=== PATIENT | male | born 1990 | race Caucasian/White ===

== ENCOUNTER 2016-07-28 21:54 | Emergency (ER) | payer OTHER ==
--- NOTE | 2016-07-28 22:53 | ED ORDER SUMMARY ---
..... Patient: YECENIA HORTON OrderSheet [facility] VisitID: [id number] [address] [place] [address] 26y, M Registration Date/Time: 07/28/2016 ORDER SHEET Weight: 108.8 kg (stated) Allergies: Sulfa Antibiotics GENERAL ORDERS: MEDICATION ORDERS: Tdap IM 0.5 mL (NOW, per protocol) (22:36 07/28/2016 Nallely R.N. per protocol) ([facility] 22:36 RCollier R.N.) (22:51 SANAollmaxime R.N.) IV FLUIDS: ORDER SHEET NOTES: [Electronically signed by Harleen Martinez R.N. (23:26 07/28/2016)] [Electronically signed by Danita Sutton (23:29 07/28/2016)] [Electronically locked/signed by Harleen Martinez R.N. (23:07/28/2016)]
--- NOTE | 2016-07-28 22:53 | ED NURSING NOTES ---
Clinical Report - Nurses [facility] [address] [place] [address] 07/28/2016 21:54 Patient: YECENIA HORTON TRIAGE Triage time 22:27. Acuity: LEVEL 4. Chief Complaint: INJURY TO LEFT WRIST. --22:33 Harleen Martinez R.N. 22:27 07/28/16. BP: 132/69. HR: 86. RR: 15. O2 saturation: 99%. Temp: 98.2 F (oral). Pain level now: 09/03. --22:33 Harleen Martinez R.N. Weight: 108.8 kg stated. Height/Length: 72 inches Per Patient. BMI: 32.6. --22:32 Harleen Martinez R.N. Medications Albuterol Sulfate Inhalation. --22:29 Harleen Martinez R.N. Qvar Inhalation. --22:29 Harleen Martinez R.N. Allergies Sulfa Antibiotics. --22:29 Harleen Martinez R.N. History Arrived by private vehicle. Historian: patient. Primary physician (Laura). ( pt cut self with knife while cutting velcro). This occurred today. He sustained a laceration. Treatment MANAGER SOCIAL MEDIA: None. PAST MEDICAL HX: Tetanus immunization status is not up-to-date. SOCIAL HX: Smoker- current status unknown (quit 6 months ago). History of drug use: marijuana. No alcohol use. --22:33 Harleen Martinez R.N. PROBLEMS: Gastroesophageal Reflux Disease. Lifestyle / Substance Problems. Dyspnea. Crohn's Disease. Headache. Diarrhea. Asthma. --22:30 Harleen Martinez R.N. ADDITIONAL SURGERIES: Arm surgery. Colonoscopy. Fracture Repair. Left arm closed reduction. --22:30 Harleen Martinez R.N. Interventions ID band on patient. To treatment room. --22:33 Harleen Martinez R.N. PHYSICAL ASSESSMENT Ambulatory to room. GENERAL / NEURO / PSYCH: Oriented X 4. Alert. Appears in no acute distress. EXTREMITIES: Capillary refill is less than 2 seconds in the extremities. Neuro-vascular status intact to the extremity. Left forearm: laceration with bleeding. SKIN: Skin is warm and dry. --22:33 Harleen Martinez R.N. NURSING PROGRESS NOTES Two patient identifiers checked. Call light placed in reach. Side rails up x 1. Bed placed in lowest position. Brakes of bed on. --22:34 Harleen Martinez R.N. Patient ready for evaluation- chart flagged. --22:34 Harleen Martinez R.N. 22:51 07/28/2016 TDAP IM 0.5 mL given. (Lot#: [id number], expiration date: 04/21/2018, Kiln Mechanic: sanofi pasteur). Given in the right deltoid. Allergies verified and confirmed 5 rights. Vaccine information statement provided to the patient. --22:51 Harleen Martinez R.N. 22:55. Applied clean dressing consisting of Band-Aid, following the application of antibiotic ointment. --23:25 Harleen Martinez R.N. DISPOSITION / DISCHARGE 23:00. Condition at departure: improved and stable. No learning barriers present. Discharge instructions provided and reviewed with the patient. Patient verbalized understanding. Written instructions provided in Mosotho. The patient was discharged home and accompanied by billing checker. He left the Emergency Department ambulatory and via private vehicle. Patient driving. --23:24 Harleen Martinez R.N. 23:00 07/28/16. BP: deferred. HR: deferred. RR: 15 (regular and unlabored). O2 saturation: deferred. Temp: deferred. Pain level now: 0/10. --23:24 Harleen Martinez R.N. Locked/Released at 07/28/2016 23:26 by Harleen Martinez R.N.
--- NOTE | 2016-07-28 22:53 | ED CLINICAL REPORT ---
Clinical Report - Physicians/Mid Levels [place] [address] [place] [address] 07/28/2016 21:54 Patient: YECENIA HORTON Time Seen: 22:27; initial patient contact, initial documentation, patient care assumed. Arrived- By private vehicle. Historian- patient. HISTORY OF PRESENT ILLNESS Chief Complaint: Injury to left forearm. The injury happened just prior to arrival. The patient sustained a laceration from a knife. Occurred at home. Patient is not experiencing pain. Patient denies injury to the head or neck. No other injury. REVIEW OF SYSTEMS The patient sustained a laceration. No swelling, tingling, numbness or weakness. All systems otherwise negative, except as recorded above. PAST HISTORY See nurses notes. PROBLEMS: Gastroesophageal Reflux Disease. Lifestyle / Substance Problems. Dyspnea. Crohn's Disease. Headache. Diarrhea. Asthma. --22:30 Harleen Martinez R.N. ADDITIONAL SURGERIES: Arm surgery. Colonoscopy. Fracture Repair. Left arm closed reduction. --22:30 Harleen Martinez R.N. The patient's dominant hand is the right. Tetanus immunization status is unknown. SOCIAL HISTORY Former smoker. Occasional alcohol use. History of occasional drug use: marijuana. No recent travel. Is a local resident. FAMILY HISTORY No significant family medical history. ADDITIONAL NOTES The nursing notes have been reviewed with agreement regarding the chief complaint, HPI, ROS, PMH and patient medications and allergies. PHYSICAL EXAM Vital Signs: 07/28/2016 22:27 BP: 132/69. HR: 86. RR: 15. O2 saturation: 99%. Temp: 98.2 F. Pain level now: 2/10. Have been reviewed as normal and appear to be correct. Appearance: Alert. Oriented X3. No acute distress. Head: Head atraumatic. Eyes: Pupils equal, round and reactive to light. Eyes normal inspection. Respiratory: No respiratory distress. Skin: Skin intact. Skin warm and dry. Normal skin color. Normal skin turgor. Extremities: Left forearm: subcutaneous 1.0 cm laceration located in the mid dorsal aspect of forearm. SEE LACERATION PROCEDURE NOTE #1. Neurovascular intact distally. No erythema, tenderness, swelling, abrasion or ecchymosis. No puncture wound, foreign body or deformity. Upper extremity otherwise negative. Extremities otherwise negative. Neuro, Vascular and Tendons: Vascular status intact. Sensation intact. Motor intact. Tendon function intact. Neuro: Oriented X 3. No motor deficit. No sensory deficit. Note: isolated injury to FA. PROGRESS AND PROCEDURES Laceration Repair: Location: left forearm. Length: 1 cm. Wound depth/shape- linear and involving fascia. Wound is clean. No contamination, foreign body or contused tissue present. No tissue loss. Distal neuro/vascular/tendon status normal. Tendon not examined. No tendon deficit or laceration or tendon injury. Anesthesia provided (none, pt declined). Prepped with Betadine. Wound explored, cleansed and examined to the base in bloodless field with normal saline. Wound not debrided extensively. No foreign material removed. Closure of skin: interrupted 4-0 (1 sutures). Post-procedure: he is stable and there are no complications. Bleeding is controlled and neuro-vascular status is intact distal to the wound. Tetanus immunization up-to-date. Estimated blood loss: 3 mL. Patient counseled in person regarding the patient's stable condition and diagnosis. 22:52. Differential Diagnosis: Other possible considerations: lac, fb, abrasion. Above considerations are based on history and physical exam. Differential diagnosis was discussed with patient. Disposition: Discharged home in good and improved condition (22:53). Condition: good and stable. CLINICAL IMPRESSION Single deep laceration to the left forearm.Treatment of laceration not delayed. No infection or foreign body present. INSTRUCTIONS Protect wound and keep wound area clean. Soak in warm soapy water. Apply bacitracin twice daily. Sutures/octavio should be removed in ten days. Warnings: TETANUS: You were given a tetanus shot during your visit. Make a note for future reference. GENERAL WARNINGS: Return or contact your physician immediately if your condition worsens or changes unexpectedly, if not improving as expected, or if other problems arise. Specifically return if problem worsens. Follow-up: Follow up with your doctor in about ten for suture removal and wound check. Summary of care provided to patient. Understanding of the discharge instructions verbalized by patient. (Electronically signed by Danita Sutton A.R.NPati 07/28/2016 23:29)
--- NOTE | 2016-07-28 22:53 | ED ORDER SUMMARY ---
..... Patient: YECENIA HORTON OrderSheet [facility] VisitID: [id number] [address] [place] [address] 26y, M Registration Date/Time: 07/28/2016 ORDER SHEET Weight: 108.8 kg (stated) Allergies: Sulfa Antibiotics GENERAL ORDERS: MEDICATION ORDERS: Tdap IM 0.5 mL (NOW, per protocol) (22:36 07/28/2016 Nallely R.N. per protocol) ([facility] 22:36 RCollier R.N.) (22:51 SANAollmaxime R.N.) IV FLUIDS: ORDER SHEET NOTES: [Electronically signed by Harleen Martinez R.N. (23:26 07/28/2016)] [Electronically signed by Danita Sutton (23:29 07/28/2016)] [Electronically locked/signed by Harleen Martinez R.N. (23:07/28/2016)]
--- NOTE | 2016-07-28 22:53 | ED NURSING NOTES ---
Clinical Report - Nurses [facility] [address] [place] [address] 07/28/2016 21:54 Patient: YECENIA HORTON TRIAGE Triage time 22:27. Acuity: LEVEL 4. Chief Complaint: INJURY TO LEFT WRIST. --22:33 Harleen Martinez R.N. 22:27 07/28/16. BP: 132/69. HR: 86. RR: 15. O2 saturation: 99%. Temp: 98.2 F (oral). Pain level now: 09/03. --22:33 Harleen Martinez R.N. Weight: 108.8 kg stated. Height/Length: 72 inches Per Patient. BMI: 32.6. --22:32 Harleen Martinez R.N. Medications Albuterol Sulfate Inhalation. --22:29 Harleen Martinez R.N. Qvar Inhalation. --22:29 Harleen Martinez R.N. Allergies Sulfa Antibiotics. --22:29 Harleen Martinez R.N. History Arrived by private vehicle. Historian: patient. Primary physician (Laura). ( pt cut self with knife while cutting velcro). This occurred today. He sustained a laceration. Treatment CELERY CUTTER: None. PAST MEDICAL HX: Tetanus immunization status is not up-to-date. SOCIAL HX: Smoker- current status unknown (quit 6 months ago). History of drug use: marijuana. No alcohol use. --22:33 Harleen Martinez R.N. PROBLEMS: Gastroesophageal Reflux Disease. Lifestyle / Substance Problems. Dyspnea. Crohn's Disease. Headache. Diarrhea. Asthma. --22:30 Harleen Martinez R.N. ADDITIONAL SURGERIES: Arm surgery. Colonoscopy. Fracture Repair. Left arm closed reduction. --22:30 Harleen Martinez R.N. Interventions ID band on patient. To treatment room. --22:33 Harleen Martinez R.N. PHYSICAL ASSESSMENT Ambulatory to room. GENERAL / NEURO / PSYCH: Oriented X 4. Alert. Appears in no acute distress. EXTREMITIES: Capillary refill is less than 2 seconds in the extremities. Neuro-vascular status intact to the extremity. Left forearm: laceration with bleeding. SKIN: Skin is warm and dry. --22:33 Harleen Martinez R.N. NURSING PROGRESS NOTES Two patient identifiers checked. Call light placed in reach. Side rails up x 1. Bed placed in lowest position. Brakes of bed on. --22:34 Harleen Martinez R.N. Patient ready for evaluation- chart flagged. --22:34 Harleen Martinez R.N. 22:51 07/28/2016 TDAP IM 0.5 mL given. (Lot#: [id number], expiration date: 04/21/2018, Glass Block Installer: sanofi pasteur). Given in the right deltoid. Allergies verified and confirmed 5 rights. Vaccine information statement provided to the patient. --22:51 Harleen Martinez R.N. 22:55. Applied clean dressing consisting of Band-Aid, following the application of antibiotic ointment. --23:25 Harleen Martinez R.N. DISPOSITION / DISCHARGE 23:00. Condition at departure: improved and stable. No learning barriers present. Discharge instructions provided and reviewed with the patient. Patient verbalized understanding. Written instructions provided in [place]. The patient was discharged home and accompanied by pick pulling machine operator. He left the Emergency Department ambulatory and via private vehicle. Patient driving. --23:24 Harleen Martinez R.N. 23:00 07/28/16. BP: deferred. HR: deferred. RR: 15 (regular and unlabored). O2 saturation: deferred. Temp: deferred. Pain level now: 0/10. --23:24 Harleen Martinez R.N. Locked/Released at 07/28/2016 23:26 by Harleen Martinez R.N.
--- NOTE | 2016-07-28 23:29 | ED DISCHARGE INSTRUCTIONS ---
Patient: YECENIA HORTON General Instructions [facility] VisitID: [id number] [place] [address] 26y, M Registration Date/Time: 07/28/2016 Single deep laceration to the left forearm.Treatment of laceration not delayed. No infection or foreign body present. INSTRUCTIONS Protect wound and keep wound area clean. Soak in warm soapy water. Apply bacitracin twice daily. Sutures/octavio should be removed in ten days. Warnings: TETANUS: You were given a tetanus shot during your visit. Make a note for future reference. GENERAL WARNINGS: Return or contact your physician immediately if your condition worsens or changes unexpectedly, if not improving as expected, or if other problems arise. Specifically return if problem worsens. Follow-up: Follow up with your doctor in about ten for suture removal and wound check. Summary of care provided to patient. Understanding of the discharge instructions verbalized by patient. ADDITIONAL INFORMATION Laceration (All Closures) Alaceration is a cut through the skin. This will usually require stitches (sutures) or octavio if it is deep. Minor cuts may be treated with a surgical tape closure orskin glue. Home care The following guidelines will help you care for your laceration at home: Extremity, face, or trunk wounds Keep the wound clean and dry. If a bandage was applied and it becomes wet or dirty, replace it. Otherwise, leave it in place for the first 24 hours. If stitches or octavio were used, clean the wound daily. After removing the bandage, wash the area with soap and water. Use a wet cotton swab to loosen and remove any blood or crust that forms. The doctor may prescribe an antibiotic cream or ointment to prevent infection. Do not stop taking this medication until you have finished the prescribed course or the doctor tells you to stop. The doctor may also prescribe medications for pain. Follow the doctors instructions for taking these medications. You may remove the bandage to shower as usual after the first 24 hours, but do not soak the area in water (no swimming) until the stitches or octavio are removed. If surgical tape was used, keep the area clean and dry. If it becomes wet, blot it dry with a towel. If skin glue was used, do not scratch, rub, or pick at the adhesive film. Do not place tape directly over the film. Do not apply liquid, ointment, or creams to the wound while the film is in place. Do not clean the wound with peroxide and do not apply ointments. Avoid activities that cause heavy sweating until the film has fallen off. Protect the wound from prolonged exposure to sunlight or tanning lamps. You may shower as usual but do not soak the wound in water (no baths or swimming). The film will fall off by itself in 510 days. Scalp wounds During the first two days, you may carefully rinse your hair in the shower to remove blood, glass or dirt particles. After two days, you may shower and shampoo your hair normally. Do not soak your scalp in the tub or go swimming until the stitches or octavio have been removed. Talk with your doctor before applying any antibiotic ointment to the wound. Mouth wounds Eat soft foods to reduce pain. If the cut is inside of your mouth, clean by rinsing after each meal and at bedtime with a mixture of equal parts water and hydrogen peroxide (do not swallow!). Or, you can use a cotton swab to directly apply hydrogen peroxide onto the cut. Mouth wounds can be painful when eating. You may use an [id number]-vuehhya local numbing solution for pain relief. If this is not available, you may use any numbing solution for teething babies. You may apply this directly to the sores with a cotton-tip swab or with your finger. Follow-up care Follow up with your health care provider. Most skin wounds heal within ten days. Mouth and facial wounds heal within five days. However, even with proper treatment, a wound infection may sometimes occur. Therefore, you should check the wound daily for signs of infection listed below. Stitches should be removed from the face within five days; stitches and octavio should be removed from other parts of the body within 714 days. If dissolving stitches were used in the mouth, these will fall out or dissolve without the need for removal. If tape closures were used, remove them yourself if they have not fallen off after 7 days. Ifskin glue was used, the film will fall off by itself in 510 days. When to seek medical care Get prompt medical attention if any of these occur: Bleeding not controlled by direct pressure Signs of infection, including increasing pain in the wound, increasing wound redness or swelling, or pus coming from the wound Fever of 100.4F (38C) or higher, or as directed by your health care provider Stitches or octavio come apart or fall out or surgical tape falls off before 7 days Wound edges re-open Laceration, Extremity (Sutures, [place], Or Tape) A laceration is a cut through the skin. This will usually require stitches (sutures) or octavio if it is deep. Minor cuts may be treated with surgical tape closures. Home care The following guidelines will help you care for your laceration at home: Keep the wound clean and dry. If a bandage was applied and it becomes wet or dirty, replace it. Otherwise, leave it in place for the first 24 hours, then change it once a day or as directed. If stitches or octavio were used, clean the wound daily: After removing the bandage, wash the area with soap and water. Use a wet cotton swab to loosen and remove any blood or crust that forms. After cleaning, keep the wound clean and dry. Talk with your doctor before applying any antibiotic ointment to the wound. Reapply the bandage. You may remove the bandage to shower as usual after the first 24 hours, but do not soak the area in water (no swimming) until the stitches or octavio are removed. If surgical tape closures were used, keep the area clean and dry. If it becomes wet, blot it dry with a towel. The doctor may prescribe an antibiotic cream or ointment to prevent infection. Do not stop taking this medication until you have finished the prescribed course or the doctor tells you to stop. The doctor may also prescribe medications for pain. Follow the doctors instructions for taking these medications. If you have chronic liver or kidney disease or ever had a stomach ulcer or GI bleeding, talk with your doctor before using these medicines. Follow-up care Follow up with your health care provider. Most skin wounds heal within ten days. However, an infection may sometimes occur despite proper treatment. Therefore, check the wound daily for the signs of infection listed below. Stitches and octavio should be removed within 714 days. If surgical tape closures were used, you may remove them after 10 days, if they have not fallen off by then. Notify your doctor if you notice persistent numbness or weakness in the injured extremity. (Note:A radiologist will review any X-rays that were taken. We will notify you of any new findings that may affect your care.) When to seek medical care Get prompt medical attention if any of these occur: Increasing pain in the wound Redness, swelling, or pus coming from the wound Fever of 100.4F (38C) or higher, or as directed by your health care provider If stitches or octavio come apart or fall out before your next appointment If the surgical tape closures fall off within seven days, or the wound edges re-open Bleeding not controlled by direct pressure Diphtheria Toxoid Adsorbed, Tetanus Toxoid, Adsorbed Suspension for injection What is this medicine? DIPHTHERIA AND TETANUS TOXOIDS ADSORBED (dif THEER ee uh and TET n us TOK soids ad SAWRB) is a vaccine. It is used to prevent infections of diphtheria and tetanus (nico). How should I use this medicine? This vaccine is for injection into a muscle. It is given by a health child care director. A copy of Vaccine Information Statements will be given before each vaccination. Read this sheet carefully each time. The sheet may change frequently. Talk to your fish cutter regarding the use of this medicine in children. While this drug may be prescribed for selected conditions, precautions do apply. What side effects may I notice from receiving this medicine? Side effects that you should report to your doctor or health child care director as soon as possible: allergic reactions like skin rash, itching or hives, swelling of the face, lips, or tongue arthritis pain breathing problems changes in hearing extreme changes in behavior fast, irregular heartbeat fever over 100 degrees F pain, tingling, numbness in the hands or feet seizures unusually weak or tired Side effects that usually do not require medical attention (report to your doctor or health child care director if they continue or are bothersome): aches or pains bruising, pain, swelling at site where injected headache loss of appetite low-grade fever of 100 degrees F or less nausea, vomiting sleepy swollen glands What may interact with this medicine? adalimumab anakinra infliximab live vaccines medicines that suppress your immune system medicines to treat cancer medicines that treat or prevent blood clots like daily aspirin, enoxaparin, heparin, ticlopidine, warfarin radiopharmaceuticals like iodine I-125 or I-131 What if I miss a dose? Keep appointments for follow-up (booster) doses as directed. It is important not to miss your dose. Call your doctor or health child care director if you are unable to keep an appointment. Where should I keep my medicine? This drug is given in a hospital or clinic and will not be stored at home. What should I tell my health care provider before I take this medicine? They need to know if you have any of these conditions: bleeding disorder immune system problems infection with fever low levels of platelets in the blood an unusual or allergic reaction to diphtheria or tetanus toxoid, latex, thimerosal, other medicines, foods, dyes, or preservatives or trying to get breast-feeding What should I watch for while using this medicine? Contact your doctor or health child care director and seek emergency medical care if any serious side effects occur. This vaccine, like all vaccines, may not fully protect everyone. You have been given the following additional information: Laceration, All Laceration, Extrem (Suture, Staple, Or Tape) Diphtheria Toxoid Adsorbed, Tetanus Toxoid, Adsorbed Suspension for injection (Electronically signed by Danita Sutton A.R.N.P. 07/28/2016 23:29)
--- NOTE | 2016-07-28 23:29 | ED DISCHARGE INSTRUCTIONS ---
Patient: YECENIA HORTON General Instructions [facility] VisitID: [id number] [place] [address] 26y, M Registration Date/Time: 07/28/2016 Single deep laceration to the left forearm.Treatment of laceration not delayed. No infection or foreign body present. INSTRUCTIONS Protect wound and keep wound area clean. Soak in warm soapy water. Apply bacitracin twice daily. Sutures/octavio should be removed in ten days. Warnings: TETANUS: You were given a tetanus shot during your visit. Make a note for future reference. GENERAL WARNINGS: Return or contact your physician immediately if your condition worsens or changes unexpectedly, if not improving as expected, or if other problems arise. Specifically return if problem worsens. Follow-up: Follow up with your doctor in about ten for suture removal and wound check. Summary of care provided to patient. Understanding of the discharge instructions verbalized by patient. ADDITIONAL INFORMATION Laceration (All Closures) Alaceration is a cut through the skin. This will usually require stitches (sutures) or octavio if it is deep. Minor cuts may be treated with a surgical tape closure orskin glue. Home care The following guidelines will help you care for your laceration at home: Extremity, face, or trunk wounds Keep the wound clean and dry. If a bandage was applied and it becomes wet or dirty, replace it. Otherwise, leave it in place for the first 24 hours. If stitches or octavio were used, clean the wound daily. After removing the bandage, wash the area with soap and water. Use a wet cotton swab to loosen and remove any blood or crust that forms. The doctor may prescribe an antibiotic cream or ointment to prevent infection. Do not stop taking this medication until you have finished the prescribed course or the doctor tells you to stop. The doctor may also prescribe medications for pain. Follow the doctors instructions for taking these medications. You may remove the bandage to shower as usual after the first 24 hours, but do not soak the area in water (no swimming) until the stitches or octavio are removed. If surgical tape was used, keep the area clean and dry. If it becomes wet, blot it dry with a towel. If skin glue was used, do not scratch, rub, or pick at the adhesive film. Do not place tape directly over the film. Do not apply liquid, ointment, or creams to the wound while the film is in place. Do not clean the wound with peroxide and do not apply ointments. Avoid activities that cause heavy sweating until the film has fallen off. Protect the wound from prolonged exposure to sunlight or tanning lamps. You may shower as usual but do not soak the wound in water (no baths or swimming). The film will fall off by itself in 510 days. Scalp wounds During the first two days, you may carefully rinse your hair in the shower to remove blood, glass or dirt particles. After two days, you may shower and shampoo your hair normally. Do not soak your scalp in the tub or go swimming until the stitches or octavio have been removed. Talk with your doctor before applying any antibiotic ointment to the wound. Mouth wounds Eat soft foods to reduce pain. If the cut is inside of your mouth, clean by rinsing after each meal and at bedtime with a mixture of equal parts water and hydrogen peroxide (do not swallow!). Or, you can use a cotton swab to directly apply hydrogen peroxide onto the cut. Mouth wounds can be painful when eating. You may use an [id number] local numbing solution for pain relief. If this is not available, you may use any numbing solution for teething babies. You may apply this directly to the sores with a cotton-tip swab or with your finger. Follow-up care Follow up with your health care provider. Most skin wounds heal within ten days. Mouth and facial wounds heal within five days. However, even with proper treatment, a wound infection may sometimes occur. Therefore, you should check the wound daily for signs of infection listed below. Stitches should be removed from the face within five days; stitches and octavio should be removed from other parts of the body within 714 days. If dissolving stitches were used in the mouth, these will fall out or dissolve without the need for removal. If tape closures were used, remove them yourself if they have not fallen off after 7 days. Ifskin glue was used, the film will fall off by itself in 510 days. When to seek medical care Get prompt medical attention if any of these occur: Bleeding not controlled by direct pressure Signs of infection, including increasing pain in the wound, increasing wound redness or swelling, or pus coming from the wound Fever of 100.4F (38C) or higher, or as directed by your health care provider Stitches or octavio come apart or fall out or surgical tape falls off before 7 days Wound edges re-open Laceration, Extremity (Sutures, [place], Or Tape) A laceration is a cut through the skin. This will usually require stitches (sutures) or octavio if it is deep. Minor cuts may be treated with surgical tape closures. Home care The following guidelines will help you care for your laceration at home: Keep the wound clean and dry. If a bandage was applied and it becomes wet or dirty, replace it. Otherwise, leave it in place for the first 24 hours, then change it once a day or as directed. If stitches or octavio were used, clean the wound daily: After removing the bandage, wash the area with soap and water. Use a wet cotton swab to loosen and remove any blood or crust that forms. After cleaning, keep the wound clean and dry. Talk with your doctor before applying any antibiotic ointment to the wound. Reapply the bandage. You may remove the bandage to shower as usual after the first 24 hours, but do not soak the area in water (no swimming) until the stitches or octavio are removed. If surgical tape closures were used, keep the area clean and dry. If it becomes wet, blot it dry with a towel. The doctor may prescribe an antibiotic cream or ointment to prevent infection. Do not stop taking this medication until you have finished the prescribed course or the doctor tells you to stop. The doctor may also prescribe medications for pain. Follow the doctors instructions for taking these medications. If you have chronic liver or kidney disease or ever had a stomach ulcer or GI bleeding, talk with your doctor before using these medicines. Follow-up care Follow up with your health care provider. Most skin wounds heal within ten days. However, an infection may sometimes occur despite proper treatment. Therefore, check the wound daily for the signs of infection listed below. Stitches and octavio should be removed within 714 days. If surgical tape closures were used, you may remove them after 10 days, if they have not fallen off by then. Notify your doctor if you notice persistent numbness or weakness in the injured extremity. (Note:A radiologist will review any X-rays that were taken. We will notify you of any new findings that may affect your care.) When to seek medical care Get prompt medical attention if any of these occur: Increasing pain in the wound Redness, swelling, or pus coming from the wound Fever of 100.4F (38C) or higher, or as directed by your health care provider If stitches or octavio come apart or fall out before your next appointment If the surgical tape closures fall off within seven days, or the wound edges re-open Bleeding not controlled by direct pressure Diphtheria Toxoid Adsorbed, Tetanus Toxoid, Adsorbed Suspension for injection What is this medicine? DIPHTHERIA AND TETANUS TOXOIDS ADSORBED (dif THEER ee uh and TET n us TOK soids ad SAWRB) is a vaccine. It is used to prevent infections of diphtheria and tetanus (nico). How should I use this medicine? This vaccine is for injection into a muscle. It is given by a health health care administrator. A copy of Vaccine Information Statements will be given before each vaccination. Read this sheet carefully each time. The sheet may change frequently. Talk to your phone operator regarding the use of this medicine in children. While this drug may be prescribed for selected conditions, precautions do apply. What side effects may I notice from receiving this medicine? Side effects that you should report to your doctor or health health care administrator as soon as possible: allergic reactions like skin rash, itching or hives, swelling of the face, lips, or tongue arthritis pain breathing problems changes in hearing extreme changes in behavior fast, irregular heartbeat fever over 100 degrees F pain, tingling, numbness in the hands or feet seizures unusually weak or tired Side effects that usually do not require medical attention (report to your doctor or health health care administrator if they continue or are bothersome): aches or pains bruising, pain, swelling at site where injected headache loss of appetite low-grade fever of 100 degrees F or less nausea, vomiting sleepy swollen glands What may interact with this medicine? adalimumab anakinra infliximab live vaccines medicines that suppress your immune system medicines to treat cancer medicines that treat or prevent blood clots like daily aspirin, enoxaparin, heparin, ticlopidine, warfarin radiopharmaceuticals like iodine I-125 or I-131 What if I miss a dose? Keep appointments for follow-up (booster) doses as directed. It is important not to miss your dose. Call your doctor or health health care administrator if you are unable to keep an appointment. Where should I keep my medicine? This drug is given in a hospital or clinic and will not be stored at home. What should I tell my health care provider before I take this medicine? They need to know if you have any of these conditions: bleeding disorder immune system problems infection with fever low levels of platelets in the blood an unusual or allergic reaction to diphtheria or tetanus toxoid, latex, thimerosal, other medicines, foods, dyes, or preservatives or trying to get breast-feeding What should I watch for while using this medicine? Contact your doctor or health health care administrator and seek emergency medical care if any serious side effects occur. This vaccine, like all vaccines, may not fully protect everyone. You have been given the following additional information: Laceration, All Laceration, Extrem (Suture, Staple, Or Tape) Diphtheria Toxoid Adsorbed, Tetanus Toxoid, Adsorbed Suspension for injection (Electronically signed by Danita Sutton A.R.N.P. 07/28/2016 23:29)
--- NOTE | 2016-07-28 23:30 | ED MED RECONCILIATION SUMMARY ---
Patient: YECENIA HORTON Medication Reconciliation Report [facility] VisitID: [id number] [address] [place] [address] 26y, M Registration Date/Time: 07/28/2016 Weight: 108.8 kg Height/Length: 72 in. BMI: 32.6 ALLERGIES: Sulfa Antibiotics The patient's Home Medications are listed below: THE FOLLOWING MEDICATIONS NEED TO BE RECONCILED: Albuterol Sulfate Inhalation Qvar Inhalation The source(s) of the original Home Medication information: Not obtained. The following Medications were given to the patient in the Emergency Department: TDAP [IM] IM 0.5 mL, administered: 07/28/2016 10:51:00 PM The following Medications were prescribed to the patient: None.
--- NOTE | 2016-07-28 23:30 | ED MAR SUMMARY ---
..... Medication Administration Record [facility] [address] [place] [address] Patient: YECENIA HORTON Visit ID: [id number] 26y, M Weight: 108.8 kg Height/Length: 72 in BMI: 32.6 ALLERGIES: Sulfa Antibiotics Given 22:51 07/28/2016 Harleen Martinez R.N. Medication Administered: TDAP [IM], Dose: 0.5 mL IM. Medication Ordered: Tdap IM 0.5 mL (NOW, per protocol).
--- NOTE | 2016-07-28 23:30 | ED MAR SUMMARY ---
..... Medication Administration Record [facility] [address] [place] [address] Patient: YECENIA HORTON Visit ID: [id number] 26y, M Weight: 108.8 kg Height/Length: 72 in BMI: 32.6 ALLERGIES: Sulfa Antibiotics Given 22:51 07/28/2016 Harleen Martinez R.N. Medication Administered: TDAP [IM], Dose: 0.5 mL IM. Medication Ordered: Tdap IM 0.5 mL (NOW, per protocol).
--- NOTE | 2016-07-28 23:30 | ED MED RECONCILIATION SUMMARY ---
Patient: YECENIA HORTON Medication Reconciliation Report [facility] VisitID: [id number] [address] [place] [address] 26y, M Registration Date/Time: 07/28/2016 Weight: 108.8 kg Height/Length: 72 in. BMI: 32.6 ALLERGIES: Sulfa Antibiotics The patient's Home Medications are listed below: THE FOLLOWING MEDICATIONS NEED TO BE RECONCILED: Albuterol Sulfate Inhalation Qvar Inhalation The source(s) of the original Home Medication information: Not obtained. The following Medications were given to the patient in the Emergency Department: TDAP [IM] IM 0.5 mL, administered: 07/28/2016 10:51:00 PM The following Medications were prescribed to the patient: None.
== END 2016-07-28 23:00 | disposition home or self-care (01) ==
LOC: ED SRH 21:54
DX: S51.812A Laceration without foreign body of left forearm, initial encounter (principal); W26.0XXA Contact with knife, initial encounter; Y93.9 Activity, unspecified; Y92.009 Unspecified place in unspecified non-institutional (private) residence as the place of occurrence of the external cause; Y99.9 Unspecified external cause status; K21.9 Gastro-esophageal reflux disease without esophagitis; Z87.891 Personal history of nicotine dependence; Z23 Encounter for immunization